=== PATIENT | female | born 1950 | race Asian ===

== ENCOUNTER 2019-06-22 13:11 | Emergency (ER) | payer MEDICAID ==
[2019-06-22] MEDS ORDERED: LIDOCAINE 1% Multi-Dose 20 ML VIAL. ONE (14:05)
--- NOTE | 2019-06-22 14:08 | PHYS DOC ---
Past History Past Medical History: No Pertinent History Smoking: Non-smoker Alcohol Use: None Drug Use: None Adult General Chief Complaint Chief Complaint: LACERATION/AVULSION HPI HPI Patient is a 69-year-old female presents with right small finger laceration. Patient was cutting a plastic water bottle with a knife prior to putting plan/bryant in the bottle. She is right-hand dominant. No numbness or tingling. Bleeding would not stop. This happened shortly prior to arrival. Both the bottle and the knife were clean. Bleeding is controlled with pressure.[] Review of Systems Review of Systems Constitutional: Denies fever or chills [] Eyes: Denies change in visual acuity, redness, or eye pain [] HENT: Denies nasal congestion or sore throat [] Respiratory: Denies cough or shortness of breath [] Cardiovascular: No chest pain or palpitations[] GI: Denies abdominal pain, nausea, vomiting, bloody stools or diarrhea [] : Denies dysuria or hematuria [] Musculoskeletal: Denies back pain or joint pain [] Integument: Denies rash or skin lesions, see history of present illness [] Neurologic: Denies headache, focal weakness or sensory changes [] Endocrine: Denies polyuria or polydipsia [] All other systems were reviewed and found to be within normal limits, except as documented in this note. Current Medications Current Medications Current Medications Medications (Trade) Dose Ordered Sig/Jag Start Time Stop Time Status Last Admin Dose Admin Lidocaine HCl 20 ml 1X ONCE 06/22/19 14:15 06/22/19 14:16 UNV Physical Exam Physical Exam Constitutional: Well developed, well nourished, no acute distress, non-toxic appearance. [] HENT: Normocephalic, atraumatic, bilateral external ears normal, oropharynx moist, no oral exudates, nose normal. [] Eyes: PERRLA, EOMI, conjunctiva normal, no discharge. [] Neck: Normal range of motion, no tenderness, supple, no stridor. [] Cardiovascular:Heart rate regular rhythm, no murmur [] Lungs & Thorax: Bilateral breath sounds clear to auscultation [] Abdomen: Not examined. [] Skin: Warm, dry, no erythema, no rash. Right small finger volar aspect, proximal phalanx has an irregular incision. FDS, FDP, and extensor mechanisms are intact. No pain with axial loading. 2 point discrimination is less than 5 mm. Capillary refills less than 2 seconds. No foreign body identified. [] Back: No tenderness, no CVA tenderness. [] Extremities: No tenderness, no cyanosis, no clubbing, ROM intact, no edema. [] Neurologic: Alert and oriented X 3, normal motor function, normal sensory function, no focal deficits noted. [] Psychologic: Affect normal, judgement normal, mood normal. [] EKG EKG [] Radiology/Procedures Radiology/Procedures [] Course & Med Decision Making Course & Med Decision Making Pertinent Labs and Imaging studies reviewed. (See chart for details) ED course: Patient arrived, was placed in bed, and tolerated exam well. Wound was repaired as noted. No foreign body was identified. She was discharged in improved condition with all questions answered Medical decision making: There is no evidence of a fracture, dislocation, neurologic or vascular compromise.[] Dragon Disclaimer Dragon Disclaimer This electronic medical record was generated, in whole or in part, using a voice recognition dictation system. Departure Departure: Impression: Primary Impression: Laceration of right little finger Disposition: HOME, SELF-CARE Condition: IMPROVED Patient Instructions: Sutured Wound Care Additional Instructions: Keep the wound clean and dry. Stitches out in 10-14 days. Follow-up with your regular doctor in 2 days for a wound check. Return to the ER if worsening pain, redness, bleeding, or any other concerns. Laceration Repair Lac Repair Indication: Right small finger laceration[] Procedure: The patient was placed in the appropriate position and wound was cleaned. Patient had a digital block performed. The wound was closed with 5 simple interrupted, 50 sutures. There was a small arteriole that was bleeding in the midportion of the wound, not part of the neurovascular bundle, and this was ligated using 6-0 Vicryl to tie it off. Patient then was placed in a sterile dressing. Total repaired wound length: 2.5 cm Other Items: None The patient tolerated the procedure well. Hemostasis was achieved. Complications: None Problem Qualifiers Primary Impression: Laceration of right little finger Encounter type: initial encounter Damage to nail status: without damage Foreign body presence: without foreign body Qualified Codes: S61.216A - Laceration without foreign body of right little finger without damage to nail, initial encounter DWAYNE VILLANUEVA DO Jun 22, 2019 14:08
[2019-06-22] MEDS ORDERED: LIDOCAINE 1% Multi-Dose 20 ML VIAL. IJ ONE (14:15)
== END 2019-06-22 14:48 | disposition home or self-care (01) ==
LOC: ER 13:11
DX: S61.216A Laceration without foreign body of right little finger without damage to nail, initial encounter (principal); W26.0XXA Contact with knife, initial encounter; Y93.89 Activity, other specified; Y92.89 Other specified places as the place of occurrence of the external cause; Y99.8 Other external cause status
CPT/HCPCS: 12001; 99283